=== PATIENT | female | born 1945 | race African-American/Black ===

== ENCOUNTER 2022-02-15 16:34 | Emergency (ER) | payer OTHER, BC ==
[2022-02-15 17:02] VITALS: BP 138/79; PULSE 84; RESP 18; TEMP 98.4; BMI 23.0
== END 2022-02-15 18:20 | disposition home or self-care (01) ==
LOC: FER 16:34
DX: H61.22 Impacted cerumen, left ear (principal)
CPT/HCPCS: 99281-25

== ENCOUNTER 2022-03-06 15:43 | Emergency (ER) | payer OTHER, BC ==
[2022-03-06 16:10] VITALS: BP 113/57; PULSE 79; RESP 16; TEMP 99; BMI 23.2
[2022-03-06] MEDS ORDERED: diphenhydrAMINE HCL 25 MG CAPSULE (FP) PO ONE ×2 (16:14→16:21)
== END 2022-03-06 16:55 | disposition home or self-care (01) ==
LOC: FER 15:43
DX: T63.481A Toxic effect of venom of other arthropod, accidental (unintentional), initial encounter (principal)
CPT/HCPCS: 99283-25